=== PATIENT | male | born 1985 | race Two or more races ===

== ENCOUNTER 2016-09-19 13:23 | Inpatient (IN) | payer SELFPAY ==
[~2016-09-19] VITALS: Ht 177.8 cm; Wt 68.7 kg
[~2016-09-19 13:23] MED LIST: MEDR2.5T PO
[2016-09-19] MEDS ORDERED: LIDOCAINE 1%/EPI 1:100,000 20 ML VIAL. INJ ONE (14:00)
[2016-09-19] MEDS ORDERED: IV NORMAL SALINE 1000ML BAG 1,000 ML IV ONE (14:00)
--- NOTE | 2016-09-19 14:06 | PHYS DOC ---
Past Medical History Past Medical History: Other Additional Past Medical Histor: Cerebral Palsy. Past Surgical History: Other Additional Past Surgical Histo: Hernia Alcohol Use: None Drug Use: Marijuana Adult General Chief Complaint Chief Complaint: SYNCOPE HPI HPI Patient is a 31 year old male who presents with a chin injury after having a syncopal episode prior to arrival. Patient states that he started suddenly feeling very lightheaded and having difficulty ambulating. Patient states abruptly afterward he passed out. This was unwitnessed but heard by family who state that the patient appeared to have fallen forward and hit his chin. Patient suffered lacerations to the chin as result of his fall. She states that the patient was in and out of consciousness for a few minutes before regaining consciousness. Patient was brought to the emergency department by EMS shortly after the episode occurred. Patient states he is having pain to the chin but denies any other symptoms currently. Patient has history of cerebral palsy with high functioning status. Patient denies any recent illnesses. Patient states that he did not have any increased activity last night and has not taken any medications or eaten anything that could've been spoiled. Patient rates pain currently as 6 out of 10 to the chin. Patient denies any similar episodes in the past. Review of Systems Review of Systems Constitutional: Denies fever or chills [] Eyes: Denies change in visual acuity, redness, or eye pain [] HENT: Chin injury [] Respiratory: Denies cough or shortness of breath [] Cardiovascular: Syncope, denies chest pain or edema [] GI: Denies abdominal pain, nausea, vomiting, bloody stools or diarrhea [] : Denies dysuria or hematuria [] Musculoskeletal: Denies back pain or joint pain [] Integument: Denies rash or skin lesions [] Neurologic: Denies headache, focal weakness or sensory changes [] Current Medications Current Medications Current Medications Medications (Trade) Dose Ordered Sig/Juvenal Start Time Stop Time Status Last Admin Dose Admin Diphtheria/ Tetanus/Acell Pertussis (Boostrix) 0.5 ml ONCE ONCE 09/19/16 17:15 09/19/16 17:16 DC 09/19/16 17:45 0.5 ML Fentanyl Citrate (Fentanyl 2ml Vial) 50 mcg PRN Q2HR PRN 09/19/16 16:45 09/20/16 16:44 09/19/16 17:54 50 MCG Lidocaine/ Epinephrine (Xylocaine 1%-Epi 1:100,000) 20 ml 1X ONCE 09/19/16 14:00 09/19/16 14:01 DC 09/19/16 14:07 20 ML Ondansetron HCl (Zofran) 4 mg PRN Q8HRS PRN 09/19/16 16:45 09/20/16 16:44 09/19/16 17:51 4 MG Sodium Chloride 1,000 ml @ 100 mls/hr Q10H 09/19/16 16:36 09/20/16 16:35 Allergies Allergies Allergies Coded Allergies Type Severity Reaction Last Updated Verified No Known Drug Allergies 11/01/14 No Physical Exam Physical Exam Constitutional: Alert, afebrile, no acute distress. [] HENT: Normocephalic, atraumatic, bilateral external ears normal, oropharynx moist, 3 cm linear sagittal laceration with adjacent parallel 2 cm laceration on chin, no oral exudates, nose normal. [] Eyes: PERRLA, EOMI, conjunctiva normal, no discharge. [] Neck: Normal range of motion, no tenderness, supple, no stridor. [] Cardiovascular:Heart rate regular rhythm, no murmur [] Lungs & Thorax: Bilateral breath sounds clear to auscultation [] Abdomen: Bowel sounds normal, soft, no tenderness, no masses, no pulsatile masses. [] Skin: Warm, dry, no erythema, no rash. [] Back: No tenderness, no CVA tenderness. [] Extremities: No tenderness, no cyanosis, no clubbing, ROM intact, no edema. [] Neurologic: Alert and oriented X 3, normal motor function, normal sensory function, no focal deficits noted. [] Current Patient Data Vital Signs Vital Signs Date Time Temp Pulse Resp B/P (MAP) Pulse Ox O2 Delivery O2 Flow Rate FiO2 09/19/16 13:23 98.5 77 18 130/73 (92) 97 Room Air 98.5 Lab Values Laboratory Tests Test 09/19/16 14:00 White Blood Count 9.6 x10^3/uL (4.0-11.0) Red Blood Count 4.03 x10^6/uL (4.30-5.70) L Hemoglobin 8.1 g/dL (13.0-17.5) L Hematocrit 25.9 % (39.0-53.0) L Mean Corpuscular Volume 64 fL (79-100) L Mean Corpuscular Hemoglobin 20 pg (25-35) L Mean Corpuscular Hemoglobin Concent 32 g/dL (31-37) Red Cell Distribution Width 18.5 % (11.5-14.5) H Platelet Count 272 x10^3/uL (140-400) Neutrophils (%) (Auto) 81 % (31-73) H Lymphocytes (%) (Auto) 13 % (24-48) L Monocytes (%) (Auto) 4 % (0-9) Eosinophils (%) (Auto) 1 % (0-3) Basophils (%) (Auto) 1 % (0-3) Neutrophils # (Auto) 7.8 x10^3uL (1.8-7.7) H Lymphocytes # (Auto) 1.2 x10^3/uL (1.0-4.8) Monocytes # (Auto) 0.4 x10^3/uL (0.0-1.1) Eosinophils # (Auto) 0.1 x10^3/uL (0.0-0.7) Basophils # (Auto) 0.1 x10^3/uL (0.0-0.2) Platelet Estimate Adequate (ADEQUATE) Polychromasia Slight Hypochromasia Marked Anisocytosis Mod Microcytosis Marked Schistocytes Occ Sodium Level 140 mmol/L (136-145) Potassium Level 4.0 mmol/L (3.5-5.1) Chloride Level 105 mmol/L (98-107) Carbon Dioxide Level 28 mmol/L (21-32) Anion Gap 7 (6-14) Blood Urea Nitrogen 19 mg/dL (8-26) Creatinine 0.9 mg/dL (0.7-1.3) Estimated GFR (Cockcroft-Gault) 97.8 BUN/Creatinine Ratio 21 (6-20) H Glucose Level 107 mg/dL (70-99) H Calcium Level 8.4 mg/dL (8.5-10.1) L Magnesium Level 1.8 mg/dL (1.8-2.4) Total Bilirubin 0.4 mg/dL (0.2-1.0) Aspartate Amino Transferase (AST) 21 U/L (15-37) Alanine Aminotransferase (ALT) 21 U/L (16-63) Alkaline Phosphatase 58 U/L (46-116) Troponin I Quantitative < 0.017 ng/mL (0.000-0.055) Total Protein 6.8 g/dL (6.4-8.2) Albumin 3.4 g/dL (3.4-5.0) Albumin/Globulin Ratio 1.0 (1.0-1.7) Laboratory Tests 09/19/16 14:00 Laboratory Tests 09/19/16 14:00 EKG EKG Initial rhythm strip interpreted by me: Heart rate 61, sinus rhythm, multiple PVCs EKG interpreted by me: Heart rate 65, sinus rhythm, normal intervals, right bundle branch block, normal axis, no acute ST/T-wave abnormalities present Radiology/Procedures Radiology/Procedures [facility] [address] [facility] [place] [address] IMAGING REPORT Signed PATIENT: CANDICE CALIXTO ACCOUNT: [id number] : 1985 LOCATION: ER AGE: 31 SEX: M EXAM STATUS: REG ER ORD. PHYSICIAN: LAURA ECHEVERRIA MD REASON: syncopal episode, rule out acute cardiopulmonary abnormality PROCEDURE: PORTABLE CHEST 1V Indication syncopal episode. Protocol study. A single view of the chest was obtained. No prior imaging of the chest is available. The heart and pulmonary vessels appear normal. The lungs are clear. There is no pleural fluid or pneumothorax. There is some deformity involving the proximal right clavicle. This may be posttraumatic. Clinical correlation advised. IMPRESSION: No acute finding apparent in the chest DICTATED and SIGNED BY: KATI CASTILLO MD DATE: 09/19/16 1424 CC: SUNDEEP RAMIREZ MD; LAURA ECHEVERRIA MD ~ [] Course & Med Decision Making Course & Med Decision Making Pertinent Labs and Imaging studies reviewed. (See chart for details) Patient's chin laceration was repaired as outlined in the procedure note. Patient's initial blood work remarkable for microcytic anemia but no other abnormalities. Patient's vital signs are stable at this time. Patient does not show any clinical signs of hemorrhage at this time. The patient will require admission to the hospital due to syncopal episode with abnormal chest x-ray as patient will need inpatient monitoring and cardiology consult. I spoke with Dr. Mon who is on-call for Dr. Ramirez and he accepted care patient in hospital. Dragon Disclaimer Dragon Disclaimer This electronic medical record was generated, in whole or in part, using a voice recognition dictation system. Departure Departure Impression: Primary Impression: Syncope and collapse Additional Impressions: Chin laceration Microcytic anemia Disposition: ADMITTED INPATIENT Admitting Physician: Daryl Mon Condition: STABLE Referrals: SUNDEEP RAMIREZ MD (PCP) Problem Qualifiers Additional Impressions: Chin laceration Encounter type: initial encounter Qualified Codes: S01.81XA - Laceration without foreign body of other part of head, initial encounter LAURA ECHEVERRIA MD September 19, 2016 14:06
[2016-09-19 14:18] LABS: BASO # 0.1 x10^3/uL (0.0-0.2); BASO % 1 % (0-3); EOS % 1 % (0-3); HEMATOCRIT 25.9 % (39.0-53.0); HEMOGLOBIN 8.1 g/dL (13.0-17.5); LYMPH # 1.2 x10^3/uL (1.0-4.8); LYMPH % 13 % (24-48); MEAN CORPUSCULAR HEMOGLOBIN 20 pg (25-35); MEAN CORPUSCULAR HGB CONC 32 g/dL (31-37); MEAN CORPUSCULAR VOLUME 64 fL (79-100); MONO % 4 % (0-9); NEUT % 81 % (31-73); PLATELET COUNT 272 x10^3/uL (140-400); RED BLOOD COUNT 4.03 x10^6/uL (4.30-5.70); RED CELL DISTRIBUTION WIDTH 18.5 % (11.5-14.5); WHITE BLOOD COUNT 9.6 x10^3/uL (4.0-11.0)
--- NOTE | 2016-09-19 14:28 | RAD ---
Indication syncopal episode. Protocol study. A single view of the chest was obtained. No prior imaging of the chest is available. The heart and pulmonary vessels appear normal. The lungs are clear. There is no pleural fluid or pneumothorax. There is some deformity involving the proximal right clavicle. This may be posttraumatic. Clinical correlation advised. IMPRESSION: No acute finding apparent in the chest
[2016-09-19 14:37] LABS: ANISOCYTOSIS MOD; CALCIUM 8.4 mg/dL (8.5-10.1); CREATININE 0.9 mg/dL (0.7-1.3); GFR 97.8; HYPOCHROMIA MARKED; MICROCYTOSIS MARKED; PLT ESTIMATE ADEQUATE (ADEQUATE); POLYCHROMASIA SLIGHT; SCHISTOCYTES OCC
[2016-09-19 14:42] LABS: ALBUMIN 3.4 g/dL (3.4-5.0); MAGNESIUM 1.8 mg/dL (1.8-2.4); TOTAL BILIRUBIN 0.4 mg/dL (0.2-1.0); TOTAL PROTEIN 6.8 g/dL (6.4-8.2)
[2016-09-19] MEDS ORDERED: IV NORMAL SALINE 1000ML BAG 1,000 ML IV SCH (16:36)
[2016-09-19] MEDS ORDERED: ONDANSETRON PF 4 MG/2 ML VIAL. IV PRN (16:45)
[2016-09-19] MEDS ORDERED: fentaNYL PF VIAL 100 MCG/2 ML VIAL IV PRN (16:45)
[2016-09-19] MEDS ORDERED: DIPHTH,PERTUSS(ACELL),TET TOX 0.5 ML DISP.SYRIN. VAX IM ONE (17:15)
[2016-09-19 18:51] VITALS: BP 135/58
--- NOTE | 2016-09-19 18:59 | ACF ---
Admission Forms Criteria SYNCOPE Clinical Indications for Admission to Inpatient Care ( Place 'X' for any and all applicable criteria): Admission is indicated for syncope and ANY ONE of the following (1)(2)(3)(4)(5) (6)(7) : [X]I. Inpatient admission required rather than observation care (Also use Syncope: Observation Care Criteria as appropriate) because of ANY ONE of the following: [ ]a) Hemodynamic instability that is severe or persistent [ ]b) Cardiac arrhythmias of immediate concern identified or strongly suspected (eg, needs electrophysiologic study) [ ]c) Acute coronary syndrome identified (Also use Myocardial Infarction or Angina Criteria form ) [ ]d) Structural cardiac disorder (eg, aortic stenosis) suspected as cause that requires immediate correction [ ]e) Respiratory symptoms (eg, dyspnea, tachypnea) that are severe or persistent [ ]f) Neurologic signs or symptoms that are severe or persistent ( eg, stroke, seizures, altered mental status) [ ]g) Severe electrolyte abnormalities requiring inpatient care [ ]h) Supplemental oxygen or respiratory treatment for over 24 hrs that are performable only in acute inpatient setting [ ]i) IV fluid to replace significant ongoing (eg, for over 24 hrs ) losses (>3 L/m2 per day) [ ]j) Continuous intravenous infusion of anticoagulation, platelet inhibitor, vasoactive, or antiarrhythmic medication(15)(16) [ ]k) Pulmonary artery catheter monitoring [ ]l) Temporary pacemaker placement(17) [ ]m) Emergent cardioversion(18) [X]n) Other conditions, treatment or monitoring requiring inpatient admission [ ]II. Suspicion of imminently dangerous cause (eg, rare causes like pericardial tamponade, pulmonary embolism) [ ]III. Syncope causing severe injury requiring hospitalization Extended stay beyond goal length of stay may be needed for(28) [ ]a) Dangerous arrhythmia(15)(23)(27)(29) [ ]b) Myocardial ischemia [ ]c) Seizure disorder [ ]d) Syncope-related injuries The original [employer] content created by [employer] has been revised. The portions of the content which have been revised are identified through the use of italic text or in bold, and [employer] has neither reviewed nor approved the modified material. All other unmodified content is copyright [employer]. Please see references footnoted in the original [facility] edition 2016 Admission Criteria Met?: Yes KARLENE MOMIN September 19, 2016 18:59
[2016-09-19 19:20] VITALS: BP 142/49
[2016-09-19 22:30] LABS: HEMATOCRIT 25.4 % (39.0-53.0); HEMOGLOBIN 7.7 g/dL (13.0-17.5); RED BLOOD COUNT 3.86 x10^6/uL (4.30-5.70); RED CELL DISTRIBUTION WIDTH 18.6 % (11.5-14.5); WHITE BLOOD COUNT 10.9 x10^3/uL (4.0-11.0)
[2016-09-19] MEDS ORDERED: ACETAMINOPHEN 325 MG TABLET. PO PRN (22:45)
[2016-09-19 23:00] VITALS: BP 127/66
[2016-09-19] MEDS ORDERED: GABAPENTIN 300 MG CAPSULE. PO ONE (23:45)
[2016-09-19] MEDS ORDERED: clonazePAM 1 MG TABLET PO ONE (23:45)
[2016-09-19] MEDS ORDERED: ATORVASTATIN CALCIUM 40 MG TABLET. PO ONE (23:45)
[2016-09-20 03:30] VITALS: BP 124/64
[2016-09-20 04:34] LABS: BASO # 0.1 x10^3/uL (0.0-0.2); BASO % 1 % (0-3); EOS % 2 % (0-3); HEMATOCRIT 25.1 % (39.0-53.0); HEMOGLOBIN 7.7 g/dL (13.0-17.5); LYMPH # 1.8 x10^3/uL (1.0-4.8); LYMPH % 20 % (24-48); MEAN CORPUSCULAR HEMOGLOBIN 20 pg (25-35); MEAN CORPUSCULAR HGB CONC 31 g/dL (31-37); MEAN CORPUSCULAR VOLUME 65 fL (79-100); MONO % 5 % (0-9); NEUT % 72 % (31-73); PLATELET COUNT 258 x10^3/uL (140-400); RED BLOOD COUNT 3.86 x10^6/uL (4.30-5.70); RED CELL DISTRIBUTION WIDTH 18.6 % (11.5-14.5); WHITE BLOOD COUNT 9.1 x10^3/uL (4.0-11.0)
[2016-09-20 04:54] LABS: CALCIUM 8.3 mg/dL (8.5-10.1); CREATININE 0.9 mg/dL (0.7-1.3); GFR 97.8; POTASSIUM 3.8 mmol/L (3.5-5.1)
--- NOTE | 2016-09-20 06:31 | EKG ---
[facility] [address] [place] [address] Test Date: 2016-09-19 Test Time: 14:05:55 Pat Name: CANDICE CALIXTO Department: Room: 244 1 Gender: M Fraud Analyst: : 1985 Requested By: LAURA ECHEVERRIA Order Number: [id number] Reading MD: Faustino Pennington Measurements Intervals [place] Rate: 65 P: 38 CT: 132 QRS: 82 QRSD: 140 T: 12 QT: 382 QTc: 402 Interpretive Statements SINUS RHYTHM RIGHT BUNDLE BRANCH BLOCK NON-SPECIFIC ST/T CHANGES Electronically Signed On 09-27-2016 8:47:15 CDT by Faustino Pennington
[2016-09-20 07:00] VITALS: BP 125/74
--- NOTE | 2016-09-20 09:25 | PDOC1 ---
History and Physical Date of Admission Date of Admission 09/19/16 Identification/Chief Complaint Chief Complaint Syncope Problems: Source Source: Patient History of Present Illness History of Present Illness Pt states that he was trying to stand up yesterday when he became dizzy and passed out. Pt had fallen to the ground and split his chin open, which was what prompted him to come to the ER. States that this has never happened before. He has been ill over the past week with a non productive cough and with stuffy nose with green nasal drainage. Pt was found to be anemic on presentation to the ER. He has no known history of anemia, but a CBC has not been ordered in the clinic since he has been a patient of mine. Past Medical History Cardiovascular: No pertinent hx Pulmonary: No pertinent hx CENTRAL NERVOUS SYSTEM: Other (Cerebral Palsy) GI: No pertinent hx Heme/Onc: No pertinent hx Hepatobiliary: No pertinent hx Psych: No pertinent hx Rheumatologic: No pertinent hx Infectious disease: No pertinent hx ENT: No pertinent hx Renal/: No pertinent hx Endocrine: No pertinent hx Dermatology: No pertinent hx Past Surgical History Past Surgical History: Hernia Repair (Right Inguinal) Family History Family History: Cancer, Other (Panic attacks, gout, OA) Social History Smoke: 1 pack per day ALCOHOL: none Drugs: Marijuana Current Problem List Problem List Problems Medical Problems: (1) Chin laceration Status: Acute (2) Microcytic anemia Status: Acute (3) Syncope and collapse Status: Acute Current Medications Current Medications Current Medications Medications (Trade) Dose Ordered Sig/Juvenal Start Time Stop Time Status Last Admin Dose Admin Acetaminophen (Tylenol) 650 mg PRN Q4HRS PRN 09/19/16 22:45 09/19/16 23:02 650 MG Atorvastatin Calcium (Lipitor) 40 mg 1X ONCE 09/19/16 23:45 09/19/16 23:54 DC Clonazepam (Klonopin) 1 mg 1X ONCE 09/19/16 23:45 09/19/16 23:54 DC Diphtheria/ Tetanus/Acell Pertussis (Boostrix) 0.5 ml ONCE ONCE 09/19/16 17:15 09/19/16 17:16 DC 09/19/16 17:45 0.5 ML Fentanyl Citrate (Fentanyl 2ml Vial) 50 mcg PRN Q2HR PRN 09/19/16 16:45 09/20/16 16:44 09/19/16 17:54 50 MCG Gabapentin (Neurontin) 300 mg 1X ONCE 09/19/16 23:45 09/19/16 23:54 DC Lidocaine/ Epinephrine (Xylocaine 1%-Epi 1:100,000) 20 ml 1X ONCE 09/19/16 14:00 09/19/16 14:01 DC 09/19/16 14:07 20 ML Ondansetron HCl (Zofran) 4 mg PRN Q8HRS PRN 09/19/16 16:45 09/20/16 16:44 09/19/16 17:51 4 MG Sodium Chloride 1,000 ml @ 100 mls/hr Q10H 09/19/16 16:36 09/20/16 16:35 09/19/16 20:28 100 MLS/HR Allergies Allergies Allergies Coded Allergies Type Severity Reaction Last Updated Verified No Known Drug Allergies 11/01/14 No ROS Review of System CONSTITUTIONAL: No fever or chills EYES: No recent changes SKIN: No rash or itching CARDIOVASCULAR: No chest pain, palpitations, or edema RESPIRATORY: No SOB, +non productive cough GASTROINTESTINAL: No nausea, vomiting or abdominal pain NEUROLOGICAL: No headaches or weakness ENDOCRINE: No cold or heat intolerance GENITOURINARY: No urgency or frequency of urination MUSCULOSKELETAL: No back pain or joint pain LYMPHATICS: No enlarged lymph nodes PSYCHIATRIC: No anxiety or depression HEENT: +sore throat, nasal congestion Physical Exam Physical Exam GEN.: No apparent distress. Alert and oriented, spastic movements which is normal for him HEENT: Head is normocephalic, laceration sutured on chin NECK: Supple. LUNGS: Clear to auscultation, regular breathing rate and effort HEART: RRR, S1, S2 present. Peripheral pulses intact ABDOMEN: Soft, nontender. Positive bowel sounds. EXTREMITIES: Without any cyanosis. NEUROLOGIC: Normal speech, CN2-12 GI PSYCHIATRIC: Normal affect, normal mood. SKIN: No ulcerations Vitals Vitals Vital Signs Date Time Temp Pulse Resp B/P (MAP) Pulse Ox O2 Delivery O2 Flow Rate FiO2 09/20/16 07:00 97.6 68 18 125/74 (91) 97 Room Air 97.6 09/19/16 21:20 3.0 Labs Labs Laboratory Tests Test 09/19/16 14:00 09/19/16 22:20 09/20/16 04:15 White Blood Count 9.6 x10^3/uL (4.0-11.0) 10.9 x10^3/uL (4.0-11.0) 9.1 x10^3/uL (4.0-11.0) Red Blood Count 4.03 x10^6/uL (4.30-5.70) 3.86 x10^6/uL (4.30-5.70) 3.86 x10^6/uL (4.30-5.70) Hemoglobin 8.1 g/dL (13.0-17.5) 7.7 g/dL (13.0-17.5) 7.7 g/dL (13.0-17.5) Hematocrit 25.9 % (39.0-53.0) 25.4 % (39.0-53.0) 25.1 % (39.0-53.0) Mean Corpuscular Volume 64 fL (79-100) 66 fL (79-100) 65 fL (79-100) Mean Corpuscular Hemoglobin 20 pg (25-35) 20 pg (25-35) 20 pg (25-35) Mean Corpuscular Hemoglobin Concent 32 g/dL (31-37) 31 g/dL (31-37) 31 g/dL (31-37) Red Cell Distribution Width 18.5 % (11.5-14.5) 18.6 % (11.5-14.5) 18.6 % (11.5-14.5) Platelet Count 272 x10^3/uL (140-400) 253 x10^3/uL (140-400) 258 x10^3/uL (140-400) Neutrophils (%) (Auto) 81 % (31-73) 72 % (31-73) Lymphocytes (%) (Auto) 13 % (24-48) 20 % (24-48) Monocytes (%) (Auto) 4 % (0-9) 5 % (0-9) Eosinophils (%) (Auto) 1 % (0-3) 2 % (0-3) Basophils (%) (Auto) 1 % (0-3) 1 % (0-3) Neutrophils # (Auto) 7.8 x10^3uL (1.8-7.7) 6.6 x10^3uL (1.8-7.7) Lymphocytes # (Auto) 1.2 x10^3/uL (1.0-4.8) 1.8 x10^3/uL (1.0-4.8) Monocytes # (Auto) 0.4 x10^3/uL (0.0-1.1) 0.4 x10^3/uL (0.0-1.1) Eosinophils # (Auto) 0.1 x10^3/uL (0.0-0.7) 0.2 x10^3/uL (0.0-0.7) Basophils # (Auto) 0.1 x10^3/uL (0.0-0.2) 0.1 x10^3/uL (0.0-0.2) Platelet Estimate Adequate (ADEQUATE) Polychromasia Slight Hypochromasia Marked Anisocytosis Mod Microcytosis Marked Schistocytes Occ Sodium Level 140 mmol/L (136-145) 141 mmol/L (136-145) Potassium Level 4.0 mmol/L (3.5-5.1) 3.8 mmol/L (3.5-5.1) Chloride Level 105 mmol/L (98-107) 108 mmol/L (98-107) Carbon Dioxide Level 28 mmol/L (21-32) 25 mmol/L (21-32) Anion Gap 7 (6-14) 8 (6-14) Blood Urea Nitrogen 19 mg/dL (8-26) 21 mg/dL (8-26) Creatinine 0.9 mg/dL (0.7-1.3) 0.9 mg/dL (0.7-1.3) Estimated GFR (Cockcroft-Gault) 97.8 97.8 BUN/Creatinine Ratio 21 (6-20) Glucose Level 107 mg/dL (70-99) 97 mg/dL (70-99) Calcium Level 8.4 mg/dL (8.5-10.1) 8.3 mg/dL (8.5-10.1) Magnesium Level 1.8 mg/dL (1.8-2.4) Total Bilirubin 0.4 mg/dL (0.2-1.0) Aspartate Amino Transf (AST/SGOT) 21 U/L (15-37) Alanine Aminotransferase (ALT/SGPT) 21 U/L (16-63) Alkaline Phosphatase 58 U/L (46-116) Troponin I Quantitative < 0.017 ng/mL (0.000-0.055) < 0.017 ng/mL (0.000-0.055) < 0.017 ng/mL (0.000-0.055) Total Protein 6.8 g/dL (6.4-8.2) Albumin 3.4 g/dL (3.4-5.0) Albumin/Globulin Ratio 1.0 (1.0-1.7) Laboratory Tests Test 09/19/16 14:00 09/19/16 22:20 09/20/16 04:15 White Blood Count 9.6 x10^3/uL (4.0-11.0) 10.9 x10^3/uL (4.0-11.0) 9.1 x10^3/uL (4.0-11.0) Red Blood Count 4.03 x10^6/uL (4.30-5.70) 3.86 x10^6/uL (4.30-5.70) 3.86 x10^6/uL (4.30-5.70) Hemoglobin 8.1 g/dL (13.0-17.5) 7.7 g/dL (13.0-17.5) 7.7 g/dL (13.0-17.5) Hematocrit 25.9 % (39.0-53.0) 25.4 % (39.0-53.0) 25.1 % (39.0-53.0) Mean Corpuscular Volume 64 fL (79-100) 66 fL (79-100) 65 fL (79-100) Mean Corpuscular Hemoglobin 20 pg (25-35) 20 pg (25-35) 20 pg (25-35) Mean Corpuscular Hemoglobin Concent 32 g/dL (31-37) 31 g/dL (31-37) 31 g/dL (31-37) Red Cell Distribution Width 18.5 % (11.5-14.5) 18.6 % (11.5-14.5) 18.6 % (11.5-14.5) Platelet Count 272 x10^3/uL (140-400) 253 x10^3/uL (140-400) 258 x10^3/uL (140-400) Neutrophils (%) (Auto) 81 % (31-73) 72 % (31-73) Lymphocytes (%) (Auto) 13 % (24-48) 20 % (24-48) Monocytes (%) (Auto) 4 % (0-9) 5 % (0-9) Eosinophils (%) (Auto) 1 % (0-3) 2 % (0-3) Basophils (%) (Auto) 1 % (0-3) 1 % (0-3) Neutrophils # (Auto) 7.8 x10^3uL (1.8-7.7) 6.6 x10^3uL (1.8-7.7) Lymphocytes # (Auto) 1.2 x10^3/uL (1.0-4.8) 1.8 x10^3/uL (1.0-4.8) Monocytes # (Auto) 0.4 x10^3/uL (0.0-1.1) 0.4 x10^3/uL (0.0-1.1) Eosinophils # (Auto) 0.1 x10^3/uL (0.0-0.7) 0.2 x10^3/uL (0.0-0.7) Basophils # (Auto) 0.1 x10^3/uL (0.0-0.2) 0.1 x10^3/uL (0.0-0.2) Platelet Estimate Adequate (ADEQUATE) Polychromasia Slight Hypochromasia Marked Anisocytosis Mod Microcytosis Marked Schistocytes Occ Sodium Level 140 mmol/L (136-145) 141 mmol/L (136-145) Potassium Level 4.0 mmol/L (3.5-5.1) 3.8 mmol/L (3.5-5.1) Chloride Level 105 mmol/L (98-107) 108 mmol/L (98-107) Carbon Dioxide Level 28 mmol/L (21-32) 25 mmol/L (21-32) Anion Gap 7 (6-14) 8 (6-14) Blood Urea Nitrogen 19 mg/dL (8-26) 21 mg/dL (8-26) Creatinine 0.9 mg/dL (0.7-1.3) 0.9 mg/dL (0.7-1.3) Estimated GFR (Cockcroft-Gault) 97.8 97.8 BUN/Creatinine Ratio 21 (6-20) Glucose Level 107 mg/dL (70-99) 97 mg/dL (70-99) Calcium Level 8.4 mg/dL (8.5-10.1) 8.3 mg/dL (8.5-10.1) Magnesium Level 1.8 mg/dL (1.8-2.4) Total Bilirubin 0.4 mg/dL (0.2-1.0) Aspartate Amino Transf (AST/SGOT) 21 U/L (15-37) Alanine Aminotransferase (ALT/SGPT) 21 U/L (16-63) Alkaline Phosphatase 58 U/L (46-116) Troponin I Quantitative < 0.017 ng/mL (0.000-0.055) < 0.017 ng/mL (0.000-0.055) < 0.017 ng/mL (0.000-0.055) Total Protein 6.8 g/dL (6.4-8.2) Albumin 3.4 g/dL (3.4-5.0) Albumin/Globulin Ratio 1.0 (1.0-1.7) VTE Prophylaxis Ordered VTE Prophylaxis Devices: No VTE Pharmacological Prophylaxi: No Assessment/Plan Assessment/Plan Pt is a 31yo male admitted for syncope 1)Syncope- Cardiology has been consulted. Symptoms seem consistent with orthostatic hypotension. Pt was found to be anemic in the ER with no known history, but pt has not had a CBC drawn since he has been a patient of mine. No active bleeding. Likely chronic in nature. GI has been consulted as well. Pt has also been ill for the past week; will treat sinus infection which could have contributed as well. SUNDEEP BAEZ MD September 20, 2016 09:25
[2016-09-20] MEDS ORDERED: AMOXICILLIN/K CLAV 875/125MG TABLET. PO SCH (10:00)
--- NOTE | 2016-09-20 10:19 | PDOC2 ---
GI CONSULT Reason For Consult: Anemia HPI: HPI: 31 y/o AA male w/ cerebral palsy admitted w/ syncope and chin laceration. GI consult requested re: anemia. Admitted Hgb 8.1, now 7.7. Low indices, elevated RDW, normal BUN, normal retic count. Denies abd pain, n/v, reflux/ heartburn, dysphagia, diarrhea, constipation, change in appetite, hematochezia, or melena. Has lost 10 pounds since his mom about 2 months ago. Takes Aleve QD for back pain. Cardiology also consulted. No previous EGD or colonoscopy. Discussed possibility of EGD today/this admission - he declines. PMH: PMH: cerebral palsy, back pain FH: Family History: Cancer (mother recently - had stomach cancer) Social History: Smoke: 1 pack per day ALCOHOL: none Drugs: Marijuana ROS: GEN: Denies fevers, chills, sweats HEENT: Denies blurred vision, sore throat CV: Denies chest pain RESP: Denies shortness of air, cough GI: Per HPI : Denies hematuria, dysuria ENDO: +weight loss NEURO: +syncope MSK: Denies weakness, joint pain/swelling SKIN: Denies jaundice, pruritus Vitals: Vitals: Vital Signs Date Time Temp Pulse Resp B/P (MAP) Pulse Ox O2 Delivery O2 Flow Rate FiO2 09/20/16 07:00 97.6 68 18 125/74 (91) 97 Room Air 97.6 09/19/16 21:20 3.0 Labs: Labs: Laboratory Tests Test 09/19/16 14:00 09/19/16 22:20 09/20/16 04:15 White Blood Count 9.6 x10^3/uL (4.0-11.0) 10.9 x10^3/uL (4.0-11.0) 9.1 x10^3/uL (4.0-11.0) Red Blood Count 4.03 x10^6/uL (4.30-5.70) 3.86 x10^6/uL (4.30-5.70) 3.86 x10^6/uL (4.30-5.70) Hemoglobin 8.1 g/dL (13.0-17.5) 7.7 g/dL (13.0-17.5) 7.7 g/dL (13.0-17.5) Hematocrit 25.9 % (39.0-53.0) 25.4 % (39.0-53.0) 25.1 % (39.0-53.0) Mean Corpuscular Volume 64 fL (79-100) 66 fL (79-100) 65 fL (79-100) Mean Corpuscular Hemoglobin 20 pg (25-35) 20 pg (25-35) 20 pg (25-35) Mean Corpuscular Hemoglobin Concent 32 g/dL (31-37) 31 g/dL (31-37) 31 g/dL (31-37) Red Cell Distribution Width 18.5 % (11.5-14.5) 18.6 % (11.5-14.5) 18.6 % (11.5-14.5) Platelet Count 272 x10^3/uL (140-400) 253 x10^3/uL (140-400) 258 x10^3/uL (140-400) Neutrophils (%) (Auto) 81 % (31-73) 72 % (31-73) Lymphocytes (%) (Auto) 13 % (24-48) 20 % (24-48) Monocytes (%) (Auto) 4 % (0-9) 5 % (0-9) Eosinophils (%) (Auto) 1 % (0-3) 2 % (0-3) Basophils (%) (Auto) 1 % (0-3) 1 % (0-3) Neutrophils # (Auto) 7.8 x10^3uL (1.8-7.7) 6.6 x10^3uL (1.8-7.7) Lymphocytes # (Auto) 1.2 x10^3/uL (1.0-4.8) 1.8 x10^3/uL (1.0-4.8) Monocytes # (Auto) 0.4 x10^3/uL (0.0-1.1) 0.4 x10^3/uL (0.0-1.1) Eosinophils # (Auto) 0.1 x10^3/uL (0.0-0.7) 0.2 x10^3/uL (0.0-0.7) Basophils # (Auto) 0.1 x10^3/uL (0.0-0.2) 0.1 x10^3/uL (0.0-0.2) Platelet Estimate Adequate (ADEQUATE) Polychromasia Slight Hypochromasia Marked Anisocytosis Mod Microcytosis Marked Schistocytes Occ Sodium Level 140 mmol/L (136-145) 141 mmol/L (136-145) Potassium Level 4.0 mmol/L (3.5-5.1) 3.8 mmol/L (3.5-5.1) Chloride Level 105 mmol/L (98-107) 108 mmol/L (98-107) Carbon Dioxide Level 28 mmol/L (21-32) 25 mmol/L (21-32) Anion Gap 7 (6-14) 8 (6-14) Blood Urea Nitrogen 19 mg/dL (8-26) 21 mg/dL (8-26) Creatinine 0.9 mg/dL (0.7-1.3) 0.9 mg/dL (0.7-1.3) Estimated GFR (Cockcroft-Gault) 97.8 97.8 BUN/Creatinine Ratio 21 (6-20) Glucose Level 107 mg/dL (70-99) 97 mg/dL (70-99) Calcium Level 8.4 mg/dL (8.5-10.1) 8.3 mg/dL (8.5-10.1) Magnesium Level 1.8 mg/dL (1.8-2.4) Total Bilirubin 0.4 mg/dL (0.2-1.0) Aspartate Amino Transf (AST/SGOT) 21 U/L (15-37) Alanine Aminotransferase (ALT/SGPT) 21 U/L (16-63) Alkaline Phosphatase 58 U/L (46-116) Troponin I Quantitative < 0.017 ng/mL (0.000-0.055) < 0.017 ng/mL (0.000-0.055) < 0.017 ng/mL (0.000-0.055) Total Protein 6.8 g/dL (6.4-8.2) Albumin 3.4 g/dL (3.4-5.0) Albumin/Globulin Ratio 1.0 (1.0-1.7) Reticulocyte Count (auto) 1.4 % (0.5-2.5) Allergies: Coded Allergies: No Known Drug Allergies (Unverified , 11/01/14) Medications: Current Medications Medications (Trade) Dose Ordered Sig/Juvenal Route PRN Reason Start Time Stop Time Status Last Admin Dose Admin Sodium Chloride 1,000 ml @ 1,000 mls/hr 1X ONCE IV 09/19/16 14:00 09/19/16 14:59 DC 09/19/16 14:13 Lidocaine/ Epinephrine (Xylocaine 1%-Epi 1:100,000) 20 ml 1X ONCE INJ 09/19/16 14:00 09/19/16 14:01 DC 09/19/16 14:07 Ondansetron HCl (Zofran) 4 mg PRN Q8HRS PRN IV NAUSEA/VOMITING 09/19/16 16:45 09/20/16 16:44 09/19/16 17:51 Fentanyl Citrate (Fentanyl 2ml Vial) 50 mcg PRN Q2HR PRN IV PAIN 09/19/16 16:45 09/20/16 16:44 09/19/16 17:54 Sodium Chloride 1,000 ml @ 100 mls/hr Q10H IV 09/19/16 16:36 09/20/16 16:35 09/19/16 20:28 Diphtheria/ Tetanus/Acell Pertussis (Boostrix) 0.5 ml ONCE ONCE VAX IM 09/19/16 17:15 09/19/16 17:16 DC 09/19/16 17:45 Acetaminophen (Tylenol) 650 mg PRN Q4HRS PRN PO PAIN 09/19/16 22:45 09/19/16 23:02 Imaging: Imaging: CXR IMPRESSION: No acute finding apparent in the chest PE: GEN: NAD HEENT: Atraumatic, PERRLA LUNGS: CTAB HEART: RRR, no murmurs ABD: NABS, S/ND/NT, no masses EXTREMITY: No edema SKIN: No rashes, no jaundice NEURO/PSYCH: A & O 3 A/P: A/P: Microcytic anemia NSAID use Syncope Weight loss -since other mother FH stomach cancer -- Denies obvious bleeding and GI symptoms. Recommend EGD r/o upper GI source which he declines. Will start PPI and check anemia parameters. Since no plans for EGD, okay to feed per GI. ENRIQUE BURGOS September 20, 2016 10:18
--- NOTE | 2016-09-20 10:24 | PDOC2 ---
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 Bharath Bender SOURCE Source: Chart review, Patient HISTORY OF PRESENT ILLNESS HISTORY OF PRESENT ILLNESS 31 year old male who had been smoking tobacco and THC and then stood up to walk. Dizzy and lightheaded and passed out for "couple of seconds." Unwitnessed but heard by his . Struck chin resulting in laceration that required sutures. Denies tongue biting and loss of bowels or bladder. URI for the last week and palpitations X 1 year. Was diaphoretic and weak after syncopal episode. No acute changes in EKG though non-specific T wave changes septally. Found to be anemic with Hgb of 7.7 to 8.1. Denies melena or hematemesis. Reason for Visit: syncope PAST MEDICAL HISTORY Cardiovascular: Other (palpitations X 1 year) Pulmonary: No pertinent hx CENTRAL NERVOUS SYSTEM: Other (none) GI: No pertinent hx Heme/Onc: No pertinent hx Hepatobiliary: No pertinent hx Psych: No pertinent hx Musculoskeletal: Other (cerebral palsy) Rheumatologic: No pertinent hx Infectious disease: No pertinent hx ENT: No pertinent hx Renal/: No pertinent hx Endocrine: No pertinent hx Dermatology: No pertinent hx PAST SURGICAL HISTORY Past Surgical History: Hernia Repair (RIH) FAMILY HISTORY Family History: Cancer (mother - gastric; age 58) SOCIAL HISTORY Smoke: 1 pack per day ALCOHOL: none Drugs: Marijuana (daily) Lives: with Family CURRENT MEDICATIONS CURRENT MEDICATIONS Current Medications Medications (Trade) Dose Ordered Sig/Juvenal Route PRN Reason Start Time Stop Time Status Last Admin Dose Admin Sodium Chloride 1,000 ml @ 1,000 mls/hr 1X ONCE IV 09/19/16 14:00 09/19/16 14:59 DC 09/19/16 14:13 Lidocaine/ Epinephrine (Xylocaine 1%-Epi 1:100,000) 20 ml 1X ONCE INJ 09/19/16 14:00 09/19/16 14:01 DC 09/19/16 14:07 Ondansetron HCl (Zofran) 4 mg PRN Q8HRS PRN IV NAUSEA/VOMITING 09/19/16 16:45 09/20/16 16:44 09/19/16 17:51 Fentanyl Citrate (Fentanyl 2ml Vial) 50 mcg PRN Q2HR PRN IV PAIN 09/19/16 16:45 09/20/16 16:44 09/19/16 17:54 Sodium Chloride 1,000 ml @ 100 mls/hr Q10H IV 09/19/16 16:36 09/20/16 16:35 09/19/16 20:28 Diphtheria/ Tetanus/Acell Pertussis (Boostrix) 0.5 ml ONCE ONCE VAX IM 09/19/16 17:15 09/19/16 17:16 DC 09/19/16 17:45 Acetaminophen (Tylenol) 650 mg PRN Q4HRS PRN PO PAIN 09/19/16 22:45 09/19/16 23:02 ALLERGIES ALLERGIES: Coded Allergies: No Known Drug Allergies (Unverified , 11/01/14) ROS General: YES: Fatigue PSYCHOLOGICAL ROS: No: Anxiety, Behavioral Disorder, Concentration difficultie , Decreased libido, Depression, Disorientation, Hallucinations, Hostility, Irritablity, Memory difficulties, Mood Swings, Obsessive thoughts, Physical abuse, Sexual abuse, Sleep disturbances, Suicidal ideation, Other Eyes: No Blurry vision, No Decreased vision, No Double vision, No Dry eyes, No Excessive tearing, No Eye Pain, No Itchy Eyes, No Loss of vision, No Photophobia , No Scotomata, No Uses contacts, No Uses glasses, No Other HEENT: No: Heacaches, Visual Changes, Hearing change, Nasal congestion, Nasal discharge, Oral lesions, Sinus pain, Sore Throat, Epistaxis, Sneezing, Snoring, Tinnitus, Vertigo, Vocal changes, Other ALLERGY AND IMMUNOLOGY: No: Hives, Insect Bite Sensitivity, Itchy/Watery Eyes, Nasal Congestion, Post Nasal Drip, Seasonal Allergies, Other Hematological and Lymphatic: No: Bleeding Problems, Blood Clots, Blood Transfusions, Brusing, Night Sweats, Pallor, Swollen Lymph Nodes, Other ENDOCRINE: No: Breast Changes, Galactorrhea, Hair Pattern Changes, Hot Flashes , Malaise/lethargy, Mood Swings, Palpitations, Polydipsia/polyuria, Skin Changes , Temperature Intolerance, Unexpected Weight Changes, Other Respiratory: YES: Shortness of breath, No: Cough, Hemoptysis, Orthopnea, Pleuritic Pain, SOB with excertion, Sputum Changes, Stridor, Tachypnea, Wheezing, Other Cardiovascular: yes Palpitations Gastrointestinal: No Nausea, No Vomiting, No Abdominal Pain, No Diarrhea, No Constipation, No Melena, No Hematochezia, No Other Genitourinary: YES , YES , No Dysuria, No Frequency, No Incontinence, No Hematuria, No Retention, No Discharge, No Urgency, No Pain, No Flank Pain, No Other Musculoskeletal: Yes Gait Disturbance Neurological: No Behavorial Changes, No Bowel/Bladder ControlChng, No Confusion , No Dizziness, No Gait Disturbance, No Headaches, No Impaired Coord/balance, No Memory Loss, No Numbness/Tingling, No Seizures, No Speech Problems, No Tremors, No Visual Changes, No Weakness, No Other Skin: No Dry Skin, No Eczema, No Hair Changes, No Lumps, No Mole Changes, No Mottling, No Nail Changes, No Pruritus, No Rash, No Skin Lesion Changes, No Other, No Acne PHYSICAL EXAM General: Alert, Oriented X3, Cooperative, No acute distress HEENT: PERRLA, Other (sutured laceration on chin) Lungs: Clear to auscultation Heart: Regular rate, Normal S1, Normal S2, No murmurs, Other (no carotid bruits ) Abdomen: Normal bowel sounds, Soft, No tenderness Extremities: No edema, Normal pulses (2+) Skin: No rashes Neuro: Normal speech Psych/Mental Status: Mental status NL, Mood NL MUSCULOSKELETAL: No deformity VITALS VITALS Vital Signs Date Time Temp Pulse Resp B/P (MAP) Pulse Ox O2 Delivery O2 Flow Rate FiO2 09/20/16 07:00 97.6 68 18 125/74 (91) 97 Room Air 97.6 09/19/16 21:20 3.0 LABS Lab: Laboratory Tests Test 09/19/16 14:00 09/19/16 22:20 09/20/16 04:15 White Blood Count 9.6 x10^3/uL (4.0-11.0) 10.9 x10^3/uL (4.0-11.0) 9.1 x10^3/uL (4.0-11.0) Red Blood Count 4.03 x10^6/uL (4.30-5.70) 3.86 x10^6/uL (4.30-5.70) 3.86 x10^6/uL (4.30-5.70) Hemoglobin 8.1 g/dL (13.0-17.5) 7.7 g/dL (13.0-17.5) 7.7 g/dL (13.0-17.5) Hematocrit 25.9 % (39.0-53.0) 25.4 % (39.0-53.0) 25.1 % (39.0-53.0) Mean Corpuscular Volume 64 fL (79-100) 66 fL (79-100) 65 fL (79-100) Mean Corpuscular Hemoglobin 20 pg (25-35) 20 pg (25-35) 20 pg (25-35) Mean Corpuscular Hemoglobin Concent 32 g/dL (31-37) 31 g/dL (31-37) 31 g/dL (31-37) Red Cell Distribution Width 18.5 % (11.5-14.5) 18.6 % (11.5-14.5) 18.6 % (11.5-14.5) Platelet Count 272 x10^3/uL (140-400) 253 x10^3/uL (140-400) 258 x10^3/uL (140-400) Neutrophils (%) (Auto) 81 % (31-73) 72 % (31-73) Lymphocytes (%) (Auto) 13 % (24-48) 20 % (24-48) Monocytes (%) (Auto) 4 % (0-9) 5 % (0-9) Eosinophils (%) (Auto) 1 % (0-3) 2 % (0-3) Basophils (%) (Auto) 1 % (0-3) 1 % (0-3) Neutrophils # (Auto) 7.8 x10^3uL (1.8-7.7) 6.6 x10^3uL (1.8-7.7) Lymphocytes # (Auto) 1.2 x10^3/uL (1.0-4.8) 1.8 x10^3/uL (1.0-4.8) Monocytes # (Auto) 0.4 x10^3/uL (0.0-1.1) 0.4 x10^3/uL (0.0-1.1) Eosinophils # (Auto) 0.1 x10^3/uL (0.0-0.7) 0.2 x10^3/uL (0.0-0.7) Basophils # (Auto) 0.1 x10^3/uL (0.0-0.2) 0.1 x10^3/uL (0.0-0.2) Platelet Estimate Adequate (ADEQUATE) Polychromasia Slight Hypochromasia Marked Anisocytosis Mod Microcytosis Marked Schistocytes Occ Sodium Level 140 mmol/L (136-145) 141 mmol/L (136-145) Potassium Level 4.0 mmol/L (3.5-5.1) 3.8 mmol/L (3.5-5.1) Chloride Level 105 mmol/L (98-107) 108 mmol/L (98-107) Carbon Dioxide Level 28 mmol/L (21-32) 25 mmol/L (21-32) Anion Gap 7 (6-14) 8 (6-14) Blood Urea Nitrogen 19 mg/dL (8-26) 21 mg/dL (8-26) Creatinine 0.9 mg/dL (0.7-1.3) 0.9 mg/dL (0.7-1.3) Estimated GFR (Cockcroft-Gault) 97.8 97.8 BUN/Creatinine Ratio 21 (6-20) Glucose Level 107 mg/dL (70-99) 97 mg/dL (70-99) Calcium Level 8.4 mg/dL (8.5-10.1) 8.3 mg/dL (8.5-10.1) Magnesium Level 1.8 mg/dL (1.8-2.4) Total Bilirubin 0.4 mg/dL (0.2-1.0) Aspartate Amino Transf (AST/SGOT) 21 U/L (15-37) Alanine Aminotransferase (ALT/SGPT) 21 U/L (16-63) Alkaline Phosphatase 58 U/L (46-116) Troponin I Quantitative < 0.017 ng/mL (0.000-0.055) < 0.017 ng/mL (0.000-0.055) < 0.017 ng/mL (0.000-0.055) Total Protein 6.8 g/dL (6.4-8.2) Albumin 3.4 g/dL (3.4-5.0) Albumin/Globulin Ratio 1.0 (1.0-1.7) Reticulocyte Count (auto) 1.4 % (0.5-2.5) IMAGES IMAGES CXR - no acute findings EKG EKG no acute changes; non-specific T wave changes ASSESSMENT/PLAN ASSESSMENT/PLAN 1. syncope no acute changes in EKG and troponin levels not consistent with AMI not orthostatic suspect related to anemia and advised EGD as recommended by GI echo to evaluate for valvular heart disease consider event monitor @ discharge to evaluate for dysrhythmias 2. bradycardia into the 40s overnight palpitations by history - PVCs seen on telemetry continue to monitor check UDS event monitor at discharge 3. anemia, microcytic has declined EGD with GI; does not want "to be put to sleep" discussed this is conscious sedation and not general anesthesia defer to GI 4. ? of right clavicular abnormality on CXR Problems: BAM BARON MD 09/20/16 1520: CARDIAC CONSULT ALLERGIES ALLERGIES: Coded Allergies: No Known Drug Allergies (Unverified , 11/01/14) ASSESSMENT/PLAN ASSESSMENT/PLAN Patient seen and examined. Agree with CUSTODIAL WORKER's assessment and plan Syncope of uncertain etiology. Telemetry showed predominantly sinus rhythm with few episodes of bradycardia without any significant pauses. 2-D echo showed normal LV systolic function without any significant structural abnormalities. Continue workup of anemia. Plan for event monitor as outpatient for further evaluation. Thank you for your consultation. Problems: DAMARIS DENTON APRN September 20, 2016 10:24 BAM BARON MD September 20, 2016 15:20
[2016-09-20 10:44] LABS: % SAT IRON 2 % (15-34); IRON,SERUM 9 ug/dL (65-175)
[2016-09-20 10:54] LABS: FOLATE 4.95 ng/ml (3.2-20.0)
[2016-09-20 11:00] VITALS: BP 128/77
[2016-09-20] MEDS ORDERED: PANTOPRAZOLE 40 MG TABLET.DR. PO SCH (11:00)
[2016-09-20 11:34] LABS: BARBITURATES NEG (NEG); BENZODIAZEPINES NEG (NEG); CANNABINOIDS POS (NEG); COCAINE NEG (NEG); METHADONE NEG (NEG); OPIATES NEG (NEG); PHENCYCLIDINE NEG (NEG)
--- NOTE | 2016-09-20 12:50 | CARD ---
APPROVED REPORT EXAM: Two-dimensional and M-mode echocardiogram with Doppler and color Doppler. Other Information Quality : Average Rhythm : NSR INDICATION Syncope 2D DIMENSIONS RVDd3.2 (2.9-3.5cm)Left Atrium(2D)3.5 (1.6-4.0cm) IVSd1.1 (0.7-1.1cm)Aortic Root(2D)2.9 (2.0-3.7cm) LVDd4.7 (3.9-5.9cm)LVOT Diameter2.0 (1.8-2.4cm) PWd1.1 (0.7-1.1cm)LVDs2.7 (2.5-4.0cm) FS (%) 43.3 %SV76.0 ml LVEF(%)74.5 (>50%) Aortic Valve AoV Peak Avelino.156.9cm/sAoV VTI30.5cm AO Peak GR.9.9mmHgLVOT Peak Avelino.105.8cm/s LVOT VTI 20.25cmAO Mean GR.5mmHg TIFFANIE (VMAX)2.31xr6KKT (VTI)2.08cm2 Mitral Valve MV E Psqhlgkm02.8cm/sMV DECEL [id number] MV A Nisurbsa27.8cm/sMV E Mean Gr.2mmHg MV TGT89tcZ/A Ratio1.8 MV A Eeqojvji859juKPW (PHT)3.27cm2 TDI E/Lateral E'5.7E/Medial E'6.7 Pulmonary Valve PV Peak Acsliplk344.9cm/sPV Peak Grad.6mmHg RVOT VTI25.9cm Tricuspid Valve TR P. Ymhrlino980lj/sRAP LCOUDACL67xcKi TR Peak Gr.02xvLtJVXD35uuHc LEFT VENTRICLE The left ventricle is normal size. There is normal left ventricular wall thickness. Left ventricle sy stolic function is normal. The Ejection Fraction is 65-70%. There is normal LV segmental wall motion. The left ventricular diastolic function and filling is normal for age. There is no ventricular septa l defect visualized. RIGHT VENTRICLE The right ventricle is normal size. The right ventricular systolic function is normal. ATRIA The left atrium size is normal. The right atrium size is normal. The interatrial septum is intact wit h no evidence for an atrial septal defect or patent foramen ovale as noted on 2-D or Doppler imaging. AORTIC VALVE The aortic valve is normal in structure and function. The aortic valve is trileaflet. Doppler and Col or Flow revealed no significant aortic regurgitation. There is no significant aortic valvular stenosi s. MITRAL VALVE The mitral valve is normal in structure and function. There is no mitral valve stenosis. Doppler and Color Flow revealed trace mitral regurgitation. TRICUSPID VALVE The tricuspid valve is normal in structure and function. Doppler and Color Flow revealed mild tricusp id regurgitation. The PA pressure was estimated at 46 mmHg. There is no tricuspid valve stenosis. PULMONIC VALVE The pulmonic valve is not well visualized. Doppler and Color Flow revealed no pulmonic valvular regur gitation. There is no pulmonic valvular stenosis. GREAT VESSELS The aortic root is normal in size. Normal pulmonary venous flow (Doppler). The IVC is dilated and col lapses <50% with inspiration. PERICARDIAL EFFUSION There is no evidence of significant pericardial effusion. Critical Notification Critical Value: No <Conclusion> Left ventricle systolic function is normal. The Ejection Fraction is 65-70%. There is normal LV segmental wall motion. Trace mitral regurgitation. Mild tricuspid regurgitation. The PA pressure was estimated at 46 mmHg. There is no evidence of significant pericardial effusion.
[2016-09-20 15:00] VITALS: BP 149/56
--- NOTE | 2016-09-20 16:55 | PDOC3 ---
Discharge Summary* Date of Admission: September 19, 2016 Date of Discharge: September 20, 2016 Admitting Diagnosis Problems Medical Problems: (1) Chin laceration Status: Acute (2) Microcytic anemia Status: Acute (3) Syncope and collapse Status: Acute Final Diagnosis Syncope, Microcytic Anemia CONSULTS Cardiology GI Procedures CXR- no acute finding ECHO- WNL Brief Hospital Course Pt is a 31yo male admitted for syncope 1)Syncope- Cardiology consulted. No major rhythm irregularities noted during hospitalization; pt is going to get outpatient holter monitor. Pt was found to be anemic in the ER with no known history. Pt opted not to get EGD this hospitalization, but will follow up outpatient. Disposition/Orders: D/C to Home CONDITION AT DISCHARGE: Stable Diet: Regular No Active Prescriptions or Reported Meds PCP 7-[address] Baez Time Spent Total time spent with patient [] minutes for coordination of care, counseling, and education. SUNDEEP BAEZ MD September 20, 2016 16:55
== END 2016-09-20 16:30 | disposition home or self-care (01) | DRG 312 ==
LOC: ER 13:51 → 2 SOUTH 17:42
PROVIDERS: ADMIT Family Medicine; ATTEND Family Medicine
PROC: 0HQ1XZZ Repair Face Skin, External Approach (ICD-10-PCS; principal; 2016-09-19)
DX: I95.1 Orthostatic hypotension (principal); S01.81XA Laceration without foreign body of other part of head, initial encounter; W18.39XA Other fall on same level, initial encounter; D50.9 Iron deficiency anemia, unspecified; F12.90 Cannabis use, unspecified, uncomplicated; R55 Syncope and collapse; F17.210 Nicotine dependence, cigarettes, uncomplicated; I49.3 Ventricular premature depolarization; K27.9 Peptic ulcer, site unspecified, unspecified as acute or chronic, without hemorrhage or perforation; R63.4 Abnormal weight loss; M54.9 Dorsalgia, unspecified; R26.2 Difficulty in walking, not elsewhere classified; Z80.0 Family history of malignant neoplasm of digestive organs; Y93.89 Activity, other specified; Y92.89 Other specified places as the place of occurrence of the external cause; Y99.8 Other external cause status; Z68.21 Body mass index [BMI] 21.0-21.9, adult
CPT/HCPCS: 12013; 36415; 71010; 80048; 80053; 82607; 82746; 83540; 83550; 83735; 84443; 84484; 85007; 85027; 85045; 90471; 90715; 93005; 93306; 96360; 99406; G0481; J2405; J3010; J3490; J7030; 99285-25

== ENCOUNTER 2016-09-26 17:01 | Emergency (ER) | payer SELFPAY ==
[~2016-09-26] VITALS: Ht 177.8 cm; Wt 68.0 kg
[2016-09-26 17:25] VITALS: BP 157/78
--- NOTE | 2016-09-26 17:47 | PHYS DOC ---
Past Medical History Past Medical History: Other Additional Past Medical Histor: Cerebral Palsy. Past Surgical History: Other Additional Past Surgical Histo: Hernia Alcohol Use: None Drug Use: Marijuana Adult General Chief Complaint Chief Complaint: SUTURE/STAPLE REMOVAL HPI HPI Patient is a 31 year old 31-year-old male who presents for suture removal from the chin, patient states the sutures have been in for 7 days. Patient denies any issues with the wound healing. Review of Systems Review of Systems Constitutional: Denies fever or chills [] Eyes: Denies change in visual acuity, redness, or eye pain [] HENT: Denies nasal congestion or sore throat [] Musculoskeletal: Denies back pain or joint pain [] Integument: Suture removal from the chin Neurologic: Denies headache, focal weakness or sensory changes [] Endocrine: Denies polyuria or polydipsia [] Allergies Allergies Allergies Coded Allergies Type Severity Reaction Last Updated Verified No Known Drug Allergies 11/01/14 No Physical Exam Physical Exam Constitutional: Well developed, well nourished, no acute distress, non-toxic appearance. [] HENT: Normocephalic, atraumatic, bilateral external ears normal, oropharynx moist, no oral exudates, nose normal. [] Eyes: PERRLA, EOMI, conjunctiva normal, no discharge. [] Skin: Chin with a scab. The laceration site is well approximated. There are 8 interrupted sutures on the chin. No signs of infection. Back: No tenderness, no CVA tenderness. [] Extremities: No tenderness, no cyanosis, no clubbing, ROM intact, no edema. [] Neurologic: Alert and oriented X 3, normal motor function, normal sensory function, no focal deficits noted. [] Psychologic: Affect normal, judgement normal, mood normal. [] Current Patient Data Vital Signs Vital Signs Date Time Temp Pulse Resp B/P (MAP) Pulse Ox O2 Delivery O2 Flow Rate FiO2 09/26/16 17:25 97.8 81 18 100 Room Air 97.8 EKG EKG [] Radiology/Procedures Radiology/Procedures [] Course & Med Decision Making Course & Med Decision Making Pertinent Labs and Imaging studies reviewed. (See chart for details) Eight sutures were removed from patient's chin by me. Laceration site is well approximated healing well. Patient was provided return precautions. Discharged in stable condition. Dragon Disclaimer Dragon Disclaimer This electronic medical record was generated, in whole or in part, using a voice recognition dictation system. Departure Departure Impression: Primary Impression: Visit for suture removal Disposition: 01 HOME, SELF-CARE Condition: STABLE Referrals: SUNDEEP BAEZ MD (PCP) Follow-up with your own doctor as needed Patient Instructions: Suture Removal Additional Instructions: We removed stitches from your chin. Keep the area clean and dry. Follow-up with your own doctor as needed. Scripts No Active Prescriptions or Reported Meds ALINA CLAY ELEVATOR DISPATCHER September 26, 2016 17:47
== END 2016-09-26 17:58 | disposition home or self-care (01) ==
LOC: ER 17:56
DX: S01.81XD Laceration without foreign body of other part of head, subsequent encounter (principal); F12.10 Cannabis abuse, uncomplicated; G80.9 Cerebral palsy, unspecified; X58.XXXD Exposure to other specified factors, subsequent encounter; Y92.89 Other specified places as the place of occurrence of the external cause; Y99.8 Other external cause status
CPT/HCPCS: 99281

== ENCOUNTER 2016-10-10 13:01 | Emergency (ER) | payer SELFPAY ==
[~2016-10-10] VITALS: Ht 177.8 cm; Wt 68.0 kg
--- NOTE | 2016-10-10 13:46 | PHYS DOC ---
Past Medical History Past Medical History: Other Additional Past Medical Histor: Cerebral Palsy. Past Surgical History: Other Additional Past Surgical Histo: Hernia Alcohol Use: None Drug Use: Marijuana Adult General Chief Complaint Chief Complaint: UPPER EXTREMITY INJURY HPI HPI Patient is a 31 year old male presents to the emergency department with a history of falling down one step yesterday. He states that he landed on his right shoulder and elbow area. He does have a laceration noted to his elbow although it is greater than 24 hours old therefore sutures will not be applied at. Patient's tetanus immunization is up-to-date. Patient has decreased range of motion with the right shoulder. He states that he has pain along the clavicle area although no deformities noted. Patient denies any shortness of breath or difficulty breathing. He states she's taken Tylenol or ibuprofen for pain and discomfort with minimal relief. Patient with equal chart reader noted bilaterally. Patient is also stating that he has having right upper back pain and discomfort. Review of Systems Review of Systems Constitutional: Denies fever or chills [] Eyes: Denies change in visual acuity, redness, or eye pain [] HENT: Denies nasal congestion or sore throat [] Respiratory: Denies cough or shortness of breath [] Cardiovascular: No additional information not addressed in HPI [] GI: Denies abdominal pain, nausea, vomiting, bloody stools or diarrhea [] : Denies dysuria or hematuria [] Musculoskeletal: Denies back pain. C/o right shoulder pain and discomfort Integument: Denies rash or skin lesions. Wound to right elbow Neurologic: Denies headache, focal weakness or sensory changes [] Endocrine: Denies polyuria or polydipsia [] Current Medications Current Medications Current Medications Medications (Trade) Dose Ordered Sig/[facility] Start Time Stop Time Status Last Admin Dose Admin Morphine Sulfate 4 mg 1X ONCE 10/10/16 14:00 10/10/16 14:02 DC Allergies Allergies Allergies Coded Allergies Type Severity Reaction Last Updated Verified No Known Drug Allergies 11/01/14 No Physical Exam Physical Exam Constitutional: Well developed, well nourished, no acute distress, non-toxic appearance. [] HENT: Normocephalic, atraumatic, bilateral external ears normal, oropharynx moist, no oral exudates, nose normal. [] Eyes: PERRLA, EOMI, conjunctiva normal, no discharge. [] Neck: Normal range of motion, no tenderness, supple, no stridor. [] Cardiovascular:Heart rate regular rhythm, no murmur [] Lungs & Thorax: Bilateral breath sounds clear to auscultation [] Skin: Warm, dry, no erythema, no rash. Patient with a laceration noted to the right elbow. Laceration has been greater than 24 hours old. Back: No cervical spine, thoracic spine or lumbar spine tenderness, no crepitus no deformities and no step-offs noted. Patient does have tenderness in the right upper back area. Extremities: Right shoulder tenderness, no deformities, no crepitus noted over the clavicle bone. No cyanosis, no clubbing, ROM intact, no edema. [] Neurologic: Alert and oriented X 3, normal motor function, normal sensory function, no focal deficits noted. [] Psychologic: Affect normal, judgement normal, mood normal. [] Current Patient Data Vital Signs Vital Signs Date Time Temp Pulse Resp B/P (MAP) Pulse Ox O2 Delivery O2 Flow Rate FiO2 10/10/16 13:19 98.7 74 16 98 Room Air 98.7 EKG EKG [] Radiology/Procedures Radiology/Procedures [facility] [address] [place], [place] [id number] IMAGING REPORT Signed PATIENT: CANDICE CALIXTO ACCOUNT: [id number] : 1985 LOCATION: ER AGE: 31 SEX: M EXAM STATUS: REG ER ORD. PHYSICIAN: KAVITA PICKERING APRN REASON: pain and discomfort to shoulder with decrease ROM after fall yesterday PROCEDURE: SHOULDER 2+V RIGHT EXAM: Right shoulder, 3 views. HISTORY: Pain. COMPARISON: None. FINDINGS: Internal and external rotation and transscapular views of the right shoulder are obtained. There is no fracture, dislocation or subluxation. There is a tiny bone island within the superior right humeral head. There is a healed proximal right clavicle fracture. IMPRESSION: No acute osseous finding. DICTATED and SIGNED BY: VITO AMBROCIO MD DATE: 10/10/16 9719 CC: SUNDEEP BAEZ MD; KAVITA PICKERING APRN ~ [] Course & Med Decision Making Course & Med Decision Making Pertinent Labs and Imaging studies reviewed. (See chart for details) X-rays were negative for any bony abnormalities. Patient will be placed in a sling and discharged home with recommendations for Tylenol or ibuprofen for pain and discomfort. Also recommended ice packs on 20 minutes off 20 minutes several times a day. Recommended he follow up with his primary care physician on Tuesday. Signs and symptoms to return back to emergency department as been provided. [] Dragon Disclaimer Dragon Disclaimer This electronic medical record was generated, in whole or in part, using a voice recognition dictation system. Departure Departure Impression: Primary Impression: Right shoulder pain Disposition: HOME, SELF-CARE Condition: STABLE Referrals: SUNDEEP BAEZ MD (PCP) FAREED STERN MD Patient Instructions: Arm Sling Use-Brief, Shoulder Pain, [id number] Additional Instructions: Your x-rays were negative for any bony abnormalities. Tylenol or ibuprofen for pain and discomfort. Ice packs on 20 minutes off 20 minutes several times a day. Wear the sling for comfort. Follow-up with orthopedic in the next week. Return back to emergency prior signs symptoms of become worse. Scripts No Active Prescriptions or Reported Meds KAVITA PICKERING [employer]ICE SCHEDULER October 10, 2016 13:46
[2016-10-10] MEDS ORDERED: MORPHINE SULFATE 4 MG/ML DISP.SYRIN. IV ONE (14:00)
--- NOTE | 2016-10-10 14:20 | RAD ---
EXAM: Right shoulder, 3 views. HISTORY: Pain. COMPARISON: None. FINDINGS: Internal and external rotation and transscapular views of the right shoulder are obtained. There is no fracture, dislocation or subluxation. There is a tiny bone island within the superior right humeral head. There is a healed proximal right clavicle fracture. IMPRESSION: No acute osseous finding.
[2016-10-10 14:38] VITALS: BP 145/85
== END 2016-10-10 14:38 | disposition home or self-care (01) ==
LOC: ER 13:58
DX: M25.511 Pain in right shoulder (principal); F12.10 Cannabis abuse, uncomplicated; W10.9XXA Fall (on) (from) unspecified stairs and steps, initial encounter; Y93.89 Activity, other specified; Y92.89 Other specified places as the place of occurrence of the external cause; Y99.8 Other external cause status
CPT/HCPCS: 73030; 99284

== ENCOUNTER 2019-01-02 18:45 | Emergency (ER) | payer SELFPAY ==
[~2019-01-02] VITALS: Ht 177.8 cm; Wt 80.7 kg
[2019-01-02 18:53] VITALS: BP 141/91
--- NOTE | 2019-01-02 19:18 | PHYS DOC ---
Past Medical History Past Medical History: Other Additional Past Medical Histor: Cerebral Palsy (ALINA CLAY ROTATING EQUIPMENT ENGINEER) Past Surgical History: Other Additional Past Surgical Histo: Hernia (ALINA CLAY ROTATING EQUIPMENT ENGINEER) Alcohol Use: None Drug Use: Marijuana (ALINA CLAY APRN) Adult General Chief Complaint Chief Complaint: SORE THROAT HPI HPI Patient is a 33 year old male who presents to the ED today with sore throat that began one week ago. Patient denies any fever. (ALINA CLAY APRN) Review of Systems Review of Systems Constitutional: Denies fever or chills [] Eyes: Denies change in visual acuity, redness, or eye pain [] HENT: reports sore throat. Denies nasal congestion or sore throat [] Respiratory: Denies cough or shortness of breath [] Cardiovascular: No additional information not addressed in HPI [] GI: Denies abdominal pain, nausea, vomiting, bloody stools or diarrhea [] : Denies dysuria or hematuria [] Musculoskeletal: Denies back pain or joint pain [] Integument: Denies rash or skin lesions [] Neurologic: Denies headache, focal weakness or sensory changes [] All other systems were reviewed and found to be within normal limits, except as documented in this note. (ALINA CLAY ROTATING EQUIPMENT ENGINEER) Allergies Allergies Allergies Coded Allergies Type Severity Reaction Last Updated Verified No Known Drug Allergies 11/01/14 No (ANKUR MANUEL MD) Physical Exam Physical Exam Constitutional: Well developed, well nourished, no acute distress, non-toxic appearance. [] HENT: Normocephalic, atraumatic, bilateral external ears normal, oropharynx moist, no oral exudates, nose normal. [] Eyes: PERRLA, EOMI, conjunctiva normal, no discharge. [] Neck: Normal range of motion, no tenderness, supple, no stridor. [] Cardiovascular:Heart rate regular rhythm, no murmur [] Lungs & Thorax: Bilateral breath sounds clear to auscultation [] Abdomen: Bowel sounds normal, soft, no tenderness, no masses, no pulsatile masses. [] Skin: Warm, dry, no erythema, no rash. [] Back: No tenderness, no CVA tenderness. [] Extremities: No tenderness, no cyanosis, no clubbing, ROM consistent with CP, no edema. [] Neurologic: Alert and oriented X 3, normal motor function, normal sensory function, no focal deficits noted. [] Psychologic: Affect normal, judgement normal, mood normal. [] (ALINA CLAY APRN) Current Patient Data Vital Signs Vital Signs Date Time Temp Pulse Resp B/P (MAP) Pulse Ox O2 Delivery O2 Flow Rate FiO2 01/02/19 18:53 97.5 65 17 141/91 (108) 98 Room Air 97.5 (ANKUR MANUEL MD) EKG EKG [] (ALINA CLAY APRN) Radiology/Procedures Radiology/Procedures [] (ALINA CLAY APRN) Course & Med Decision Making Course & Med Decision Making Pertinent Labs and Imaging studies reviewed. (See chart for details) This is a 33-year-old male patient presenting to the ED today with sore throat for one week. Negative rapid strep. Discharged with prednisone, Tylenol/Motrin for pain or fever. Saltwater gargles recommended. Follow-up with primary care doctor in one week. (ALINA CLAY APRN) Course & Med Decision Making Staff Physician Addendum: I was working in the ER during the course of this patient's visit. I was available for consultation as needed, but I was not directly involved in the care of this patient. (ANKUR MANUEL MD) Dragon Disclaimer Dragon Disclaimer This electronic medical record was generated, in whole or in part, using a voice recognition dictation system. (ALINA CLAY APRN) Departure Departure Impression: Primary Impression: Pharyngitis, acute Disposition: 01 HOME, SELF-CARE Condition: STABLE Referrals: NO PCP (PCP) follow up with your doctor in one week Patient Instructions: Viral Pharyngitis Additional Instructions: You were evaluated in the emergency room for sore throat, your strep test is negative. Take the medicines prescribed as ordered. Take Tylenol/Motrin for pain or fever, use salt water gurgles as needed. Scripts Prednisone (PREDNISONE) 50 Mg Tablet 1 TAB PO DAILY, #5 TAB Prov: ALINA CLAY APRN 01/02/19 Problem Qualifiers Primary Impression: Pharyngitis, acute Pharyngitis/tonsillitis etiology: unspecified etiology Qualified Codes: J02.9 - Acute pharyngitis, unspecified LAINA CLAY APRN Jan 02, 2019 19:18 ANKUR MANUEL MD Jan 02, 2019 21:16
[2019-01-02] MEDS ORDERED: PRED50TA PO (19:19)
== END 2019-01-02 19:23 | disposition home or self-care (01) ==
LOC: ER 18:45
DX: J02.9 Acute pharyngitis, unspecified (principal)
CPT/HCPCS: 87070; 87880; 99283